=== PATIENT | male | born 1980 ===

== ENCOUNTER 2017-08-28 18:15 | Emergency (ER) | payer SELFPAY ==
[2017-08-28 18:33] VITALS: BP 140/96
[2017-08-28] MEDS ORDERED: Fluorescein Sod TOPICAL 0.6* 0.6 MG TEST OPHTHALMIC ONE (18:35)
[2017-08-28] MEDS ORDERED: Eye Irrigation Solution 30 ML BOTTLE RIGHT EYE ONE (18:35)
[2017-08-28] MEDS ORDERED: Erythromycin OPTH OINT* APPLIC OINT RIGHT EYE ONE (18:47)
--- NOTE | 2017-08-28 18:57 | UC ---
Eye Complaint HPI - HPI Summary HPI Summary: R eye redness, irritation starting yesterday. 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 Denies allergies or light-sensitivity. - History of Current Complaint Chief Complaint: UCEye Stated Complaint: RIGHT EYE INJURY Time Seen by Provider: 08/28/17 18:31 Hx Obtained From: Patient Onset/Duration: Gradual Onset, Lasting Hours Timing: Constant Severity Initially: Mild Severity Currently: Moderate Pain Intensity: 8 Location of Injury: Conjunctiva Character: Dull Aggravating Factor(s): Nothing Associated Signs And Symptoms: Positive: Drainage (Clear) - Allergies/Home Medications Allergies/Adverse Reactions: Allergies Allergy/AdvReac Type Severity Reaction Status Date / Time No Known Allergies Allergy Verified 08/28/17 18:33 Home Medications: Home Medications NK [No Home Medications Reported] 08/28/17 [History Confirmed 08/28/17] PMH/Surg Hx/FS Hx/Imm Hx Previously Healthy: Yes - Surgical History Surgical History: None - Family History Known Family History: Positive: Hypertension - Social History Occupation: Employed Full-time Alcohol Use: Occasionally Substance Use Type: None Smoking Status (MU): Never Smoked Tobacco Review of Systems Constitutional: Negative Skin: Negative Eyes: Drainage, Eye Redness ENT: Negative Respiratory: Negative Cardiovascular: Negative Gastrointestinal: Negative Genitourinary: Negative Motor: Negative Neurovascular: Negative Musculoskeletal: Negative Neurological: Negative Psychological: Negative Is Patient Immunocompromised?: No All Other Systems Reviewed And Are Negative: Yes Physical Exam Triage Information Reviewed: Yes Appearance: Well-Appearing, No Pain Distress, Well-Nourished Vital Signs: Initial Vital Signs Temp 98.6 F 08/28/17 18:29 Pulse 72 08/28/17 18:29 Resp 12 08/28/17 18:29 BP 140/96 08/28/17 18:29 Pulse Ox 100 08/28/17 18:29 Vital Signs Reviewed: Yes Eye Exam: Other - fluorescein uptake over swollen area on R eye at edge of cornea, does not appear to be abrasion or FB. R upper lid inverted without FB noted Eyes: Positive: Conjunctiva Inflamed, Other: - visible swollen area ENT Exam: Normal ENT: Positive: Normal ENT inspection, Hearing grossly normal, Pharynx normal, TMs normal Neck exam: Normal Neck: Positive: Supple, Nontender, No Lymphadenopathy Respiratory Exam: Normal Respiratory: Positive: Chest non-tender, Lungs clear, Normal breath sounds, No respiratory distress Cardiovascular Exam: Normal Cardiovascular: Positive: RRR, No Murmur Musculoskeletal Exam: Normal Neurological Exam: Normal Neurological: Positive: Alert Psychological Exam: Normal Skin Exam: Normal Eye Complaint Course/Dx - Differential Dx/Diagnosis Provider Diagnoses: R eye conjunctivitis Discharge - Sign-Out/Discharge Documenting (check all that apply): Discharge/Admit/Transfer - Discharge Plan Condition: Stable Disposition: HOME Patient Education Materials: Conjunctivitis (ED) Referrals: Micah Dutton MD [Medical Doctor] - 2 Days Additional Instructions: If you are not better (or nearly better) by Wednesday, please see Dr. Dutton's office for a recheck. - Billing Disposition and Condition Condition: STABLE Disposition: HOME
== END 2017-08-28 19:00 | disposition home or self-care (01) ==
LOC: UCEAST 18:15
DX: H10.31 Unspecified acute conjunctivitis, right eye (principal)
CPT/HCPCS: 99202; A9270-GY; G0463